=== PATIENT | male | born 1980 | race Caucasian/White ===

== ENCOUNTER 2019-02-20 16:24 | Inpatient (IN) ==
[2019-02-20] MEDS ORDERED: ACETAMINOPHEN 325 MG TABLET PO PRN (18:14)
[2019-02-20] MEDS ORDERED: DICYCLOMINE 10 MG CAPSULE PO PRN (18:14)
[2019-02-20] MEDS ORDERED: ONDANSETRON 4 MG/2 ML VIAL IV PRN (18:14)
[2019-02-20] MEDS: SODIUM CHLORIDE 0.9% 1,000 ML IV SCH (19:00)
[2019-02-20] MEDS: BUPRENORPHINE SL TAB 2 MG TABLET SL SCH (19:28)
[2019-02-20] MEDS ORDERED: NICOTINE 21 MG/24 HR PATCH TRANSDERM PRN (19:48)
[2019-02-20 20:23] LABS: Basophils # 0.1 10*3/uL (0.0-0.2); Basophils % 1.2 % (0.0-0.8); Hematocrit 34.7 VOL% (42.0-52.0); Hemoglobin 12.2 GM/DL (14.0-18.0); Immature Granulocytes % 0.4 %; Immature Granulocytes Absolute 0.02 #; Lymphocytes # 1.7 10*3/uL (1.4-4.0); Lymphocytes % 30.1 % (21.2-54.2); Mean Corpuscular HGB Conc 35.2 GM/DL (32-36); Mean Corpuscular Volume 105.2 FL (87-102); Mean Platelet Volume 9.7 FL (9.6-12.0); Monocytes % 9.4 % (1.7-12.7); Neutrophils % 58.9 % (38.7-73.9); Platelet Count 386 T/CUMM (130-400); Red Cell Distribution Width 13.6 % (9.3-17.3); White Blood Count 5.6 T/CUMM (4-12)
[2019-02-20] MEDS: METHOCARBAMOL 750 MG TABLET PO PRN (20:42)
[2019-02-20] MEDS: HydrOXYzine PAMOATE 25 MG CAPSULE PO PRN (20:42)
[2019-02-20 20:50] LABS: Alanine Aminotransferase 20 U/L (16-61); Albumin 3.7 G/DL (3.4-5.0); Alkaline Phosphatase 77 U/L (45-117); Aspartate Amino Transferase 13 U/L (0-37); Bilirubin,Total < 0.39 MG/DL (0.2-1.0); Blood Urea Nitrogen 17 MG/DL (7-18); Calcium 8.2 MG/DL (8.5-10.1); Estimated Glom Filtration Rate 91 ML/MIN; Glucose 98 MG/DL (74-106); Osmolality,Calculated 282.3 MOS/KG (273-304); Total Protein 6.8 G/DL (6.4-8.3)
[2019-02-20] MEDS ORDERED: THIAMINE INJ 100 MG, FOLIC ACID INJ 1 MG, MULTIVITAMIN INJ 10 ML in SODIUM CHLORIDE 0.9... IV ONE (21:00)
[2019-02-20] MEDS: ENOXAPARIN 40 MG/0.4 ML SYRINGE SUBCUT SCH (22:01)
[2019-02-21 01:33] LABS: Apearance,Urine CLEAR (Clear); Bilirubin,Urine Negative (Negative); Blood, Urine Negative (Negative); Glucose,Urine (UA) Negative (Negative); Ketones,Urine Negative (Negative); Mucus,Urine Occasional /LPF (Occasional); Nitrite,Urine Negative (Negative); Protein,Urine Negative; RBC,Urine 2 /HPF (0-4); Urine Color Straw (Yellow); Urine Specific Gravity 1.012 (1.001-1.035); Urine Urobilinogen < 2.0 EU/DL (0.2-1.0); WBC,Urine <1 /HPF (0-6)
[2019-02-21 01:36] LABS: Barbiturates Screen,Urine Negative (Negative); Benzodiazepines Screen,Urine Negative (Negative); Cannabinoid Screen,Urine Negative (Negative); Opiate Screen,Urine Negative (Negative); Phencyclidine Screen,Urine Negative (Negative)
[2019-02-21] MEDS: BUPRENORPHINE SL TAB 2 MG TABLET SL SCH ×3 (02:16→17:35)
[2019-02-21 05:14] LABS: Basophils # 0.1 10*3/uL (0.0-0.2); Basophils % 0.8 % (0.0-0.8); Hematocrit 34.1 VOL% (42.0-52.0); Hemoglobin 11.8 GM/DL (14.0-18.0); Immature Granulocytes % 0.3 %; Immature Granulocytes Absolute 0.02 #; Lymphocytes % 31.2 % (21.2-54.2); Mean Corpuscular HGB Conc 34.6 GM/DL (32-36); Mean Corpuscular Volume 104.9 FL (87-102); Mean Platelet Volume 9.8 FL (9.6-12.0); Monocytes % 9.4 % (1.7-12.7); Neutrophils % 58.3 % (38.7-73.9); Platelet Count 354 T/CUMM (130-400); Red Blood Count 3.25 MC/CUMM (3.8-5.5); Red Cell Distribution Width 13.5 % (9.3-17.3); White Blood Count 6.5 T/CUMM (4-12)
[2019-02-21 05:36] LABS: Albumin 3.3 G/DL (3.4-5.0); Bilirubin,Total 0.7 MG/DL (0.2-1.0); Calcium 8.4 MG/DL (8.5-10.1); Thyroid Stimulating Hormone 1.41 uIU/ml (0.358-3.74); Total Protein 6.3 G/DL (6.4-8.3)
[2019-02-21] MEDS: PANTOPRAZOLE 40 MG TABLET PO SCH (08:12)
[2019-02-21] MEDS ORDERED: chlordiazePOXIDE 25 MG CAPSULE PO PRN (18:15)
[2019-02-21] MEDS: SODIUM CHLORIDE 0.9% 1,000 ML IV SCH ×2 (18:54→20:31)
[2019-02-21] MEDS: HydrOXYzine PAMOATE 25 MG CAPSULE PO PRN (20:32)
[2019-02-21] MEDS: ENOXAPARIN 40 MG/0.4 ML SYRINGE SUBCUT SCH (20:33)
[2019-02-22] MEDS: BUPRENORPHINE SL TAB 2 MG TABLET SL SCH ×3 (02:06→17:33)
[2019-02-22 03:47] LABS: Basophils # 0.1 10*3/uL (0.0-0.2); Basophils % 0.9 % (0.0-0.8); Hematocrit 32.4 VOL% (42.0-52.0); Hemoglobin 11.2 GM/DL (14.0-18.0); Immature Granulocytes % 0.2 %; Immature Granulocytes Absolute 0.01 #; Lymphocytes # 2.3 10*3/uL (1.4-4.0); Lymphocytes % 42.9 % (21.2-54.2); Mean Corpuscular HGB Conc 34.6 GM/DL (32-36); Mean Corpuscular Volume 104.9 FL (87-102); Mean Platelet Volume 9.8 FL (9.6-12.0); Monocytes % 11.6 % (1.7-12.7); Neutrophils % 44.4 % (38.7-73.9); Platelet Count 321 T/CUMM (130-400); Red Blood Count 3.09 MC/CUMM (3.8-5.5); Red Cell Distribution Width 13.4 % (9.3-17.3); White Blood Count 5.3 T/CUMM (4-12)
[2019-02-22 04:20] LABS: Alanine Aminotransferase 16 U/L (16-61); Albumin 3.1 G/DL (3.4-5.0); Alkaline Phosphatase 74 U/L (45-117); Aspartate Amino Transferase 12 U/L (0-37); Bilirubin,Total < 0.39 MG/DL (0.2-1.0); Blood Urea Nitrogen 11 MG/DL (7-18); Calcium 8.5 MG/DL (8.5-10.1); Estimated Glom Filtration Rate 82 ML/MIN; Glucose 98 MG/DL (74-106); Osmolality,Calculated 288.6 MOS/KG (273-304); Total Protein 5.9 G/DL (6.4-8.3)
[2019-02-22] MEDS: SODIUM CHLORIDE 0.9% 1,000 ML IV SCH (07:25)
[2019-02-22] MEDS: PANTOPRAZOLE 40 MG TABLET PO SCH (08:36)
[2019-02-22] MEDS: ENOXAPARIN 40 MG/0.4 ML SYRINGE SUBCUT SCH (20:23)
[2019-02-23] MEDS: METHOCARBAMOL 750 MG TABLET PO PRN (03:25)
[2019-02-23 03:56] LABS: Basophils # 0.1 10*3/uL (0.0-0.2); Eosinophils % 0.2 % (0.00-10.9); Hematocrit 32.1 VOL% (42.0-52.0); Hemoglobin 11.4 GM/DL (14.0-18.0); Immature Granulocytes % 0.2 %; Immature Granulocytes Absolute 0.01 #; Lymphocytes # 2.1 10*3/uL (1.4-4.0); Lymphocytes % 36.7 % (21.2-54.2); Mean Corpuscular HGB Conc 35.5 GM/DL (32-36); Mean Corpuscular Volume 103.2 FL (87-102); Mean Platelet Volume 9.6 FL (9.6-12.0); Monocytes % 10.1 % (1.7-12.7); Neutrophils % 51.8 % (38.7-73.9); Platelet Count 329 T/CUMM (130-400); Red Blood Count 3.11 MC/CUMM (3.8-5.5); Red Cell Distribution Width 13.2 % (9.3-17.3); White Blood Count 5.8 T/CUMM (4-12)
[2019-02-23 04:11] LABS: Alanine Aminotransferase 19 U/L (16-61); Albumin 3.1 G/DL (3.4-5.0); Alkaline Phosphatase 75 U/L (45-117); Aspartate Amino Transferase 18 U/L (0-37); Bilirubin,Total < 0.39 MG/DL (0.2-1.0); Blood Urea Nitrogen 11 MG/DL (7-18); Calcium 8.4 MG/DL (8.5-10.1); Estimated Glom Filtration Rate 103 ML/MIN; Glucose 92 MG/DL (74-106); Osmolality,Calculated 281.1 MOS/KG (273-304); Total Protein 6.2 G/DL (6.4-8.3)
[2019-02-23] MEDS: BUPRENORPHINE SL TAB 2 MG TABLET SL SCH (06:29)
[2019-02-23 08:38] VITALS: BP 107/67
[2019-02-23] MEDS: PANTOPRAZOLE 40 MG TABLET PO SCH (09:43)
== END 2019-02-23 10:44 | disposition home or self-care (01) | DRG 897 ==
LOC: N.4E 17:19
PROVIDERS: ADMIT Internal Medicine; ATTEND Internal Medicine